=== PATIENT | male | born 1995 | race American Indian/Alaskan Native ===

== ENCOUNTER 2020-08-01 14:03 | Emergency (ER) | payer SELFPAY ==
[2020-08-01 14:20] VITALS: BP 108/53
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
== END 2020-08-01 15:16 | disposition home or self-care (01) ==
LOC: ED 14:03
DX: Z20.6 Contact with and (suspected) exposure to human immunodeficiency virus [HIV] (principal); Z79.899 Other long term (current) drug therapy
CPT/HCPCS: 99282